=== PATIENT | male | born 1985 | race Caucasian/White ===

== ENCOUNTER 2022-01-01 23:53 | Emergency (ER) | payer MEDICARE ==
[2022-01-02] MEDS ORDERED: Penicillin V Potassium 250 MG TAB PO SCH (02:00)
== END 2022-01-02 02:13 | disposition home or self-care (01) ==
LOC: CSHERS 23:53
DX: K02.9 Dental caries, unspecified (principal); K03.81 Cracked tooth
CPT/HCPCS: 99282